=== PATIENT | female | born 1990 | race Two or more races ===

== ENCOUNTER 2017-05-16 20:14 | Emergency (ER) | payer OTHER ==
[2017-05-16] MEDS ORDERED: NORMAL SALINE 1000 ML 1,000 ML IV ONE (20:29)
[2017-05-16] MEDS ORDERED: KETOROLAC TROMETHAMINE INJ/PF 30 MG/1 ML SDV IV ONE (20:29)
[2017-05-16] MEDS ORDERED: PROCHLORPERAZINE EDISYLATE INJ 10 MG/2 ML VIAL IV ONE (20:29)
--- NOTE | 2017-05-16 20:51 | ER Document Report ---
ED General - General Stated Complaint: POSSIBLE SEIZURE Time Seen by Provider: 05/16/17 20:21 Notes: Patient is a 27 year old female who presents by EMS after having apparent witnessed tonic-clonic activity. Patient reports a history of multiple prior episodes in the past although has never been diagnosed formally as having epileptogenic seizures and is not on antiepileptic medications. EMS reports that while they were there patient had an episode in which "she was violently flopping around like a fish". EMS providers were unable to give me an appropriate assessment of the details of the seizure-like activity. She did return to a normal mental status less than 5 minutes after this episode. At time of arrival patient states that she has a mild, bitemporal headache that is been present for approximately 1.5 hours. States this is more intense than her typical headaches. Nothing improves or worsens that pain. Denies any fever, weakness or numbness. - Related Data Allergies/Adverse Reactions: No Known Allergies Allergy (Unverified 05/16/17 22:23) Past Medical History - General Information source: Patient - Social History Smoking Status: Never Smoker Frequency of alcohol use: None Drug Abuse: None Lives with: Spouse/Significant other Family History: Reviewed & Not Pertinent Review of Systems - Review of Systems Notes: Constitutional: Negative for fever. HENT: Negative for sore throat. Eyes: Negative for visual changes. Cardiovascular: Negative for chest pain. Respiratory: Negative for shortness of breath. Gastrointestinal: Negative for abdominal pain, vomiting or diarrhea. Genitourinary: Negative for dysuria. Musculoskeletal: Negative for back pain. Skin: Negative for rash. Neurological: Positive for headache, tonic-clonic jerking 10 point ROS negative except as marked above and in HPI. Physical Exam - Vital signs Vitals: Resp BP Pulse Ox 13 133/90 H 100 05/16/17 20:24 05/16/17 20:24 05/16/17 20:24 Interpretation: Normal Notes: PHYSICAL EXAMINATION: GENERAL: Appears anxious but in no distress HEAD: Atraumatic, normocephalic. EYES: Pupils equal round and reactive to light, extraocular movements intact, sclera anicteric, conjunctiva are normal. ENT: nares patent, oropharynx clear without exudates. Moist mucous membranes. NECK: Normal range of motion, supple without lymphadenopathy LUNGS: Breath sounds clear to auscultation bilaterally and equal. No wheezes rales or rhonchi. HEART: Regular rate and rhythm without murmurs ABDOMEN: Soft, nontender, normoactive bowel sounds. No guarding, no rebound. No masses appreciated. EXTREMITIES: Normal range of motion, no pitting or edema. No cyanosis. NEUROLOGICAL: Face symmetric. Tongue protrudes midline. Extraocular motions intact. Pupils are 2 mm and equally reactive. 5 out of 5 strength in both the distal and proximal upper and lower extremities bilaterally. Sensation is grossly intact throughout. Finger to nose testing normal. Pronator drift normal. PSYCH: Poor eye contact, intermittently having volitional expressive aphasia/ dysarthria SKIN: Warm, Dry, normal turgor, no rashes or lesions noted. 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 Clinical history is inconsistent with an epileptic seizure and a witnessed "seizure" here in the emergency department showed bilateral upper extremity movement without any lower extremity movement which is anatomically impossible for a true epileptogenic seizure. This confirms my initial suspicion based on EMS report of her "flopping like a fish" which likewise be very inconsistent with a true epileptogenic seizure. Patient did however complain of a headache today that proceeded her symptoms as I will obtain a CT of the head to exclude an intracranial bleed as patient reports a severe headache that became worse over the past 30 minutes but has been present only for the past 1.[address] is negative I will not pursue a lumbar puncture as I did have a very low clinical suspicion for subarachnoid hemorrhage and a negative CT within 6 hours is sufficient to exclude this diagnosis. Neurologic exam unremarkable without any focal neurologic deficits. No trauma sustained during today's episode. 05/16/17 22:23 Patient is continued to demonstrate multiple episodes of pseudoseizures here in the emergency department. Patient will be witnessed to be having tremors often when family members or friends are in the room but then be calmly resting in the bed talking on her cell phone in no distress shortly thereafter. She has not had any postictal periods after any of her episodes of jerking about in the bed. I do not at all suspect an epileptic origin of her activity today. Upon discharge and the patient she states "oh yeah I remember somebody saying that I have pseudoseizures". Labs and CT are unremarkable. At this time will discharge with return precautions and follow-up recommendations. Verbal discharge instructions given a the bedside and opportunity for questions given. Medication warnings reviewed. Patient is in agreement with this plan and has verbalized understanding of return precautions and the need for primary care follow-up in the next 24-72 hours. - Vital Signs Vital signs: Temp Pulse Resp BP Pulse Ox 26 H 103/77 97 05/16/17 22:39 05/16/17 22:39 05/16/17 22:39 - Laboratory Result Diagrams: 05/16/17 20:24 - Diagnostic Test Radiology reviewed: Image reviewed, Reports reviewed Radiology results interpreted by me: 05/17/17 01:17 CT head: No acute intracranial bleed - EKG Interpretation by Me Additional EKG results interpreted by me: 05/17/17 01:17 Sinus tachycardia. Rate 105. No ST elevations or depressions. QTC is 445. Discharge - Discharge Clinical Impression: Pseudogenic non-epileptiform seizures, Tonic clonic convulsion Condition: Good Disposition: HOME, SELF-CARE Additional Instructions: Your episodes of spasms today are not epileptogenic seizures. You may have a condition called PNES also known as pseudogenic non-epileptiform seizures. These are often related to emotions or stress. You need to follow-up with your primary care doctor regarding today's emergency department visit. Please return for any additional concerns you may have. Your labs and CT scan are normal today.
[2017-05-16 20:52] LABS: ANION GAP 13 (5-19); BLOOD UREA NITROGEN 11 mg/dL (7-20); CALCIUM 9.3 mg/dL (8.4-10.2); CARBON DIOXIDE 23 mmol/L (22-30); CHLORIDE 104 mmol/L (98-107); CREATININE RESULT 0.76 mg/dL (0.52-1.25); GLUCOSE 82 mg/dL (75-110); POTASSIUM 4.1 mmol/L (3.6-5.0); SODIUM 140.1 mmol/L (137-145)
--- NOTE | 2017-05-16 21:10 | RADIOLOGY REPORT (SQ) ---
EXAM DESCRIPTION: CT HEAD WITHOUT COMPLETED DATE/TIME: 05/16/2017 8:59 pm REASON FOR STUDY: seizure with headache COMPARISON: None. TECHNIQUE: Axial images acquired through the brain without intravenous contrast. Images reviewed wi th bone, brain and subdural windows. Images stored on PACS. All CT scanners at this facility use dose modulation, iterative reconstruction, and/or weight based d osing when appropriate to reduce radiation dose to as low as reasonably achievable (ALARA). [facility]: Dose Right [facility]: CareDose [facility]: Dose Right [facility]: Teradose 4D [facility]: Smart Dexterra RADIATION DOSE: Up-to-date CT equipment and radiation dose reduction techniques were employed. CTDIv ol: 64.6 mGy. DLP: 1163 mGy-cm. mGy. LIMITATIONS: None. FINDINGS: VENTRICLES: Normal size and contour. CEREBRUM: No masses. No hemorrhage. No midline shift. Normal fuentes/white matter differentiation. N o evidence for acute infarction. CEREBELLUM: No masses. No hemorrhage. No alteration of density. No evidence for acute infarction. EXTRAAXIAL SPACES: No fluid collections. No masses. ORBITS AND GLOBE: No intra- or extraconal masses. Normal contour of globe without masses. CALVARIUM: No fracture. PARANASAL SINUSES: No fluid or mucosal thickening. SOFT TISSUES: No mass or hematoma. OTHER: No other significant finding. IMPRESSION: NORMAL BRAIN CT WITHOUT CONTRAST. TECHNICAL DOCUMENTATION: JOB ID: [id number] Quality ID # [id number]: Final reports with documentation of one or more dose reduction techniques (e.g., Au tomated exposure control, adjustment of the mA and/or kV according to patient size, use of iterative reconstruction technique) 2010 [email or web address]- All Rights Reserved
[2017-05-16 22:46] VITALS: BP 103/77
--- NOTE | 2017-05-17 09:48 | EKG REPORT ---
SEVERITY:- BORDERLINE ECG - SINUS TACHYCARDIA BORDERLINE T ABNORMALITIES, INFERIOR LEADS : Confirmed by: Ras Almanza MD 17-May-2017 09:48:19
== END 2017-05-16 22:45 | disposition home or self-care (01) ==
LOC: ER 20:14
DX: F44.5 Conversion disorder with seizures or convulsions (principal); R51 Headache
CPT/HCPCS: 93005; 99284; 36415; 84703; 80048; 70450; 93010; J1885; J0780; J7030

== ENCOUNTER 2017-11-20 12:09 | Emergency (ER) | payer OTHER ==
--- NOTE | 2017-11-20 14:07 | ER Document Report ---
ED General - General Chief Complaint: Probable Seizure Stated Complaint: POSSIBLE SEIZURE Time Seen by Provider: 11/20/17 13:46 Notes: Patient is a 27-year-old female presents emergency department after a pseudoseizure while she was at the dentist. Patient states that she does have a history of pseudoseizures. Patient states that she went to the dentist to get her last wisdom tooth pulled they gave her 10 mg of Valium she states that she felt uncomfortable and she had a witnessed pseudoseizure in the chair. She went to go stand up and she states she felt like she passed out. Unaware of head injury She denies any headache. EMS did give her 5 mg of intranasal Versed. Otherwise denies any fevers, chills, headache, vision changes, weakness. TRAVEL OUTSIDE OF THE [place] IN LAST 30 DAYS: No - Related Data Allergies/Adverse Reactions: No Known Allergies Allergy (Unverified 05/16/17 22:23) Past Medical History - Social History Smoking Status: Never Smoker Family History: Reviewed & Not Pertinent Renal/ Medical History: Denies: Hx Peritoneal Dialysis Review of Systems - Review of Systems Constitutional: No symptoms reported EENT: No symptoms reported Cardiovascular: No symptoms reported Respiratory: No symptoms reported Gastrointestinal: No symptoms reported Genitourinary: No symptoms reported Musculoskeletal: See HPI Neurological/Psychological: See HPI -: Yes All other systems reviewed and negative Physical Exam - Notes Notes: PHYSICAL EXAM GENERAL: Alert, interacts well. HEAD: Normocephalic, atraumatic. EYES: Pupils equal, round, and reactive to light. Extraocular movements intact. ENT: Oral mucosa moist, tongue midline. NECK: Full range of motion. Supple. Trachea midline. LUNGS: Clear to auscultation bilaterally, no wheezes, rales, or rhonchi. No respiratory distress. HEART: Regular rate and rhythm. No murmurs, gallops, or rubs. ABDOMEN: Soft, nondistended, nontender. No guarding, rebound, or rigidity.. Bowel sounds present in all 4 quadrants. EXTREMITIES: Moves all 4 extremities spontaneously. No edema, radial and dorsalis pedis pulses 2/4 bilaterally. No cyanosis. NEUROLOGICAL: Alert and oriented x4. Face symmetric. Tongue protrudes midline. Extraocular motions intact. Pupils are 2 mm and equally reactive. Normal speech, normal gait. 5 out of 5 strength in both the distal and proximal upper and lower extremities bilaterally. Sensation is grossly intact throughout. Pronator drift normal PSYCH: Normal affect, normal mood. SKIN: Warm, dry, normal turgor. No rashes or lesions noted. Course - Re-evaluation Re-evalutation: 11/20/17 15:45 Patient is a 27-year-old female who is hemodynamically stable, no acute distress and afebrile. Patient's presentation is consistent with her history of pseudoseizures. There is no evidence of infection or concern for acute abnormalities given the patient does not have a history of epilepsy. Patient states that she does not patient is not with normal vital signs. CT the head was negative. EKG stable. Patient agrees that he does not feel the need for blood work and would like to go home. Stable for discharge home with instruction to follow-up with her primary care doctor. Patient and her the bedside agree. - Diagnostic Test Radiology reviewed: Image reviewed, Reports reviewed - EKG Interpretation by Me EKG shows normal: Sinus rhythm Rate: Normal Rhythm: NSR When compared to previous EKG there are: No significant change Discharge - Discharge Clinical Impression: Pseudoseizure Syncope Qualifiers: Syncope type: unspecified Qualified Code(s): R55 - Syncope and collapse Condition: Good Disposition: HOME, SELF-CARE Additional Instructions: Your episodes of spasms today are not epileptogenic seizures. You may have a condition called PNES also known as pseudogenic non-epileptiform seizures. These are often related to emotions or stress. You need to follow-up with your primary care doctor regarding today's emergency department visit. Please return for any additional concerns you may have. Your labs and CT scan are normal today. Forms: Parent Work Note
[2017-11-20 15:24] LABS: APPEARANCE,URINE CLEAR; BILIRUBIN,URINE NEGATIVE (NEGATIVE); COLOR,URINE STRAW; GLUCOSE, URINE NEGATIVE (NEGATIVE); KETONES,URINE NEGATIVE (NEGATIVE); LEUKOCYTE ESTERASE,URINE NEGATIVE (NEGATIVE); NITRITE,URINE NEGATIVE (NEGATIVE); PROTEIN,URINE NEGATIVE (NEGATIVE); URINE SPECIFIC GRAVITY 1.008; UROBILINOGEN,URINE NEGATIVE mg/dL (<2.0)
--- NOTE | 2017-11-20 15:33 | RADIOLOGY REPORT (SQ) ---
EXAM DESCRIPTION: CT HEAD WITHOUT COMPLETED DATE/TIME: 11/20/2017 3:21 pm REASON FOR STUDY: syncope COMPARISON: 05/16/2017 TECHNIQUE: Axial images acquired through the brain without intravenous contrast. Images reviewed wi th bone, brain and subdural windows. Images stored on PACS. All CT scanners at this facility use dose modulation, iterative reconstruction, and/or weight based d osing when appropriate to reduce radiation dose to as low as reasonably achievable (ALARA). [facility]: Dose Right [facility]: CareDose [facility]: Dose Right [facility]: Teradose 4D [facility]: Smart Coffee[employer] RADIATION DOSE: CT Rad equipment meets quality standard of care and radiation dose reduction techniq ues were employed. CTDIvol: 64.6 mGy. DLP: 1163 mGy-cm. mGy. LIMITATIONS: None. FINDINGS: VENTRICLES: Normal size and contour. CEREBRUM: No masses. No hemorrhage. No midline shift. No evidence for acute infarction. Normal gra y/white matter differentiation. No areas of low density in the white matter. CEREBELLUM: No masses. No hemorrhage. No alteration of density. No evidence for acute infarction. EXTRAAXIAL SPACES: No fluid collections. No masses. ORBITS AND GLOBE: No intra- or extraconal masses. Normal contour of globe without masses. CALVARIUM: No fracture. PARANASAL SINUSES: No fluid or mucosal thickening. SOFT TISSUES: No mass or hematoma. OTHER: No other significant finding. IMPRESSION: NORMAL BRAIN CT WITHOUT CONTRAST. EVIDENCE OF ACUTE STROKE: NO. COMMENT: Quality ID # [id number]: Final reports with documentation of one or more dose reduction techniques (e.g., Automated exposure control, adjustment of the mA and/or kV according to patient size, use of iterative reconstruction technique) TECHNICAL DOCUMENTATION: JOB ID: [id number] [employer]- All Rights Reserved
--- NOTE | 2017-11-21 10:16 | EKG REPORT ---
SEVERITY:- NORMAL ECG - SINUS RHYTHM : Confirmed by: Kierra Kemp 21-Nov-2017 10:15:52
== END 2017-11-20 16:21 | disposition home or self-care (01) ==
LOC: ER 12:09
DX: F44.5 Conversion disorder with seizures or convulsions (principal); R55 Syncope and collapse
CPT/HCPCS: 70450; 81001; 81025; 93005; 93010; 99285